=== PATIENT | male | born 1975 | race Hispanic/Latino ===

== ENCOUNTER 2018-03-30 12:25 | Emergency (ER) | payer SELFPAY ==
--- NOTE | 2018-03-30 14:07 | EDPHYS ---
Physician Documentation [facility] Name: Usman Fox Age: 42 yrs Sex: Male : 1975 Arrival Date: 03/30/2018 Time: 12:28 Bed 12 Private MD: Shaka Fitch S ED Physician Joe Sanz HPI: 03/30 13:12 This 42 yrs old Male presents to ER via Ambulatory with complaints of Eye kb Problem. 13:12 The patient is experiencing matting or discharge, redness, itching, The patient kb sustained None. to both eyes, caused by an unknown mechanism. Onset: The symptoms/episode began/occurred yesterday. Duration: the symptoms are continuous. Aggravated by nothing. Alleviated by nothing. Associated signs and symptoms: Pertinent positives: None. Patient does not utilize any form of vision correction. Severity of symptoms: At their worst the symptoms were mild moderate in the emergency department the symptoms are unchanged. The patient has not experienced similar symptoms in the past. The patient has not recently seen a physician. Historical: - Allergies: 12:57 No Known Drug Allergies; lk1 - PMHx: 12:57 ADD/ADHD; Depression; Hypertension; lk1 - PSHx: 12:57 eye surgery; lk1 - Immunization history:: Adult Immunizations up to date. - Social history:: Smoking status: Patient/guardian denies using tobacco. ROS: 13:11 Constitutional: Negative for fever, chills, and weight loss, ENT: Negative for injury, kb pain, and discharge, Cardiovascular: Negative for chest pain, palpitations, and edema, Respiratory: Negative for shortness of breath, cough, wheezing, and pleuritic chest pain, Abdomen/GI: Negative for abdominal pain, nausea, vomiting, diarrhea, and constipation, MS/Extremity: Negative for injury and deformity, Skin: Negative for injury, rash, and discoloration, Neuro: Negative for headache, weakness, numbness, tingling, and seizure. 13:11 Eyes: Positive for itching, matting, redness, Negative for blurry vision, photophobia, vision loss, visual disturbance. Exam: 13:11 Constitutional: This is a well developed, well nourished patient who is awake, alert, kb and in no acute distress. Head/Face: Normocephalic, atraumatic. Chest/axilla: Normal chest wall appearance and motion. Nontender with no deformity. No lesions are appreciated. Cardiovascular: Regular rate and rhythm with a normal S1 and S2. No gallops, murmurs, or rubs. Normal PMI, no JVD. No pulse deficits. Respiratory: Lungs have equal breath sounds bilaterally, clear to auscultation and percussion. No rales, rhonchi or wheezes noted. No increased work of breathing, no retractions or nasal flaring. Abdomen/GI: Soft, non-tender, with normal bowel sounds. No distension or tympany. No guarding or rebound. No evidence of tenderness throughout. Skin: Warm, dry with normal turgor. Normal color with no rashes, no lesions, and no evidence of cellulitis. MS/ Extremity: Pulses equal, no cyanosis. Neurovascular intact. Full, normal range of motion. Neuro: Awake and alert, GCS 15, oriented to person, place, time, and situation. Cranial nerves II-XII grossly intact. Motor strength 5/5 in all extremities. Sensory grossly intact. Cerebellar exam normal. Normal gait. 13:11 Eyes: Conjunctiva: injected, bilaterally. Vital Signs: 12:58 BP 129 / 92; Pulse 90; Resp 15; Temp 97.4(TE); Pulse Ox 95% on R/A; Weight 124.74 kg lk1 (R); Height 5 ft. 10 in. (177.80 cm) (R); Pain 4/10; 12:58 Body Mass Index 39.46 (124.74 kg, 177.80 cm) lk1 Visual Acuity: 14:04 Left Eye Visual acuity 20/20, ; Right Eye Visual acuity 20/40, ; Without Lenses; iw MDM: 13:02 Patient medically screened. kb 13:10 Data reviewed: vital signs, nurses notes. Data interpreted: Pulse oximetry: on room air kb is 95 %. Interpretation: normal. Counseling: I had a detailed discussion with the patient and/or guardian regarding: the historical points, exam findings, and any diagnostic results supporting the discharge/admit diagnosis, the need for outpatient follow up, an opthalmologist, to return to the emergency department if symptoms worsen or persist or if there are any questions or concerns that arise at home. 03/30 13:04 Order name: Visual Acuity; Complete Time: 14:04 kb Administered Medications: No medications were administered Disposition: 14:33 Co-signature as Attending Physician, Joe Sanz MD. rn Disposition: 03/30/18 14:07 Discharged to Home. Impression: Conjunctivitis. - Condition is Stable. - Discharge Instructions: Conjunctivitis (Viral and Bacterial). - Prescriptions for Vigamox 0.5 % Ophthalmic Drops - instill 1 drop by OPHTHALMIC route every 8 hours for 7 days; 5 milliliter. - Medication Reconciliation Form, Thank You Letter, Antibiotic Education, Prescription Opioid Use, Work release form form. - Follow up: Emergency Department; When: As needed; Reason: Worsening of condition. Follow up: Private Physician; When: 2 - 3 days; Reason: Recheck today's complaints, Continuance of care, Re-evaluation by your physician. Signatures: Yanira Lucas, STREET AND BUILDING DECORATOR-C STREET AND BUILDING DECORATOR-Ckb Zaina Ernandez, Joe Woodson RN, MD MD rn Kluge, Leah, RN RN lk1 Corrections: (The following items were deleted from the chart) 14:23 14:07 03/30/2018 14:07 Discharged to Home. Impression: Conjunctivitis. Condition is iw Stable. Discharge Instructions: Conjunctivitis (Viral and Bacterial). Prescriptions for Vigamox 0.5 % Ophthalmic Drops - instill 1 drop by OPHTHALMIC route every 8 hours for 7 days; 5 milliliter. and Forms are Medication Reconciliation Form, Thank You Letter, Antibiotic Education, Prescription Opioid Use. Follow up: Emergency Department; When: As needed; Reason: Worsening of condition. Follow up: Private Physician; When: 2 - 3 days; Reason: Recheck today's complaints, Continuance of care, Re-evaluation by your physician. kb
--- NOTE | 2018-03-30 14:07 | ER ---
Nurse's Notes [facility] Name: Usman Fox Age: 42 yrs Sex: Male : 1975 Arrival Date: 03/30/2018 Time: 12:28 Bed 12 Private MD: Shaka Fitch S Diagnosis: Conjunctivitis Presentation: 03/30 12:55 Presenting complaint: Patient states: "My girlfriend got sick with the flu or a cold. I lk1 got sick yesterday. My eyes were swollen shut this morning. I think I have pink eye or something.". Transition of care: patient was not received from another setting of care. Onset of symptoms was March 30, 2018 at 08:00. Risk Assessment: Do you want to hurt yourself or someone else? Patient reports no desire to harm self or others. Initial Sepsis Screen: Does the patient meet any 2 criteria? No. Patient's initial sepsis screen is negative. Does the patient have a suspected source of infection? No. Patient's initial sepsis screen is negative. Care prior to arrival: None. 12:55 Method Of Arrival: Ambulatory lk1 12:55 Acuity: KALIE 4 lk1 Triage Assessment: 12:57 General: Appears in no apparent distress. Behavior is calm, cooperative, appropriate lk1 for age. Pain: Complains of pain in headache Pain currently is 4 out of 10 on a pain scale. EENT: Eyes with exudate noted from inner aspect of conjuctiva of right eye and inner aspect of conjunctiva of left eye. Historical: - Allergies: 12:57 No Known Drug Allergies; lk1 - PMHx: 12:57 ADD/ADHD; Depression; Hypertension; lk1 - PSHx: 12:57 eye surgery; lk1 - Immunization history:: Adult Immunizations up to date. - Social history:: Smoking status: Patient/guardian denies using tobacco. Screenin:20 Abuse screen: Denies threats or abuse. Denies injuries from another. Nutritional iw screening: No deficits noted. Tuberculosis screening: No symptoms or risk factors identified. Fall Risk None identified. Assessment: 14:04 General: Appears in no apparent distress. Behavior is calm, cooperative. iw 14:04 Neuro: Level of Consciousness is awake, alert, obeys commands. Cardiovascular: iw Patient's skin is warm and dry. Respiratory: Respiratory effort is even, unlabored, Respiratory pattern is regular, symmetrical. EENT: Eyes are tearing on right inner canthus and inner aspect of conjunctiva of left eye Sclera/Cornea are reddened in outer aspect of conjuctiva of right eye, iris of right eye, inner aspect of conjuctiva of right eye, outer aspect of conjuctiva of left eye, iris of left eye and inner aspect of conjunctiva of left eye. Derm: Skin is pink, warm \\T\\ dry. normal. Musculoskeletal: Range of motion: intact in all extremities. Vital Signs: 12:58 BP 129 / 92; Pulse 90; Resp 15; Temp 97.4(TE); Pulse Ox 95% on R/A; Weight 124.74 kg lk1 (R); Height 5 ft. 10 in. (177.80 cm) (R); Pain 4/10; 12:58 Body Mass Index 39.46 (124.74 kg, 177.80 cm) lk1 Visual Acuity: 14:04 Left Eye Visual acuity 20/20, ; Right Eye Visual acuity 20/40, ; Without Lenses; iw ED Course: 12:28 Patient arrived in ED. rg4 12:28 Shaka Fitch MD is Private Physician. rg4 12:56 Triage completed. lk1 13:00 Arm band placed on right wrist. lk1 13:01 Yanira Lucas FNP-C is [facility]. kb 13:01 Joe Sanz MD is Attending Physician. kb 14:03 Zaina Ernandez, RN is Primary Nurse. iw 14:10 Patient has correct armband on for positive identification. iw 14:22 No provider procedures requiring assistance completed. Patient did not have IV access iw during this emergency room visit. Administered Medications: No medications were administered Outcome: 14:07 Discharge ordered by . kb 14:22 Discharged to home ambulatory. iw 14:22 Condition: good 14:22 Discharge instructions given to patient, Instructed on discharge instructions, follow up and referral plans. medication usage, Demonstrated understanding of instructions, follow-up care, medications, Prescriptions given X 1. 14:23 Patient left the ED. iw Signatures: Yanira Lucas FNP-C FNP-Zaina Davidson RN RN iw Kelsey Valverde RN RN lk1 Yecenia Lomeli rg4 Corrections: (The following items were deleted from the chart) 03/31 07:06 03/30 14:04 General: Appears in no apparent distress. Behavior is calm, cooperative, iw iw
[2018-03-30 14:29] VITALS: BP 129/92; TEMP 97.4; O2SAT 95
== END 2018-03-30 14:23 | disposition home or self-care (01) ==
LOC: ER 12:25
DX: H10.9 Unspecified conjunctivitis (principal); I10 Essential (primary) hypertension
CPT/HCPCS: 99282

== ENCOUNTER 2018-10-05 01:28 | Emergency (ER) | payer SELFPAY ==
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
[2018-10-05 02:40] VITALS: BP 143/90; TEMP 97.6; O2SAT 100
== END 2018-10-05 02:32 | disposition left against medical advice (07) ==
LOC: ER 01:28
DX: S09.90XA Unspecified injury of head, initial encounter (principal); W22.8XXA Striking against or struck by other objects, initial encounter; Z53.29 Procedure and treatment not carried out because of patient's decision for other reasons
CPT/HCPCS: 99284

== ENCOUNTER 2019-03-08 23:26 | Emergency (ER) | payer SELFPAY ==
--- OUTSIDE RECORDS SUMMARY | 2019-03-08 23:28 | XMS REPORT ---
:1975 [facility] Address [address] [place] [address] Dr. Santos [address] [place] [id number] Care Team Providers Name Role Phone Unavailable Unavailable Unavailable Problems This patient has no known problems. Allergies, Adverse Reactions, Alerts This patient has no known allergies or adverse reactions. Medications This patient has no known medications.
--- NOTE | 2019-03-08 23:48 | ER ---
Nurse's Notes [facility] Name: Usman Fox Age: 43 yrs Sex: Male : 1975 Arrival Date: 03/08/2019 Time: 23:32 Bed 15 Private MD: Diagnosis: Acute maxillary sinusitis Presentation: 03/08 23:33 Presenting complaint: Patient states: Cough, congestion x 2 weeks with no relief; pain lp1 to throat when swallowing, unsure if fever at home. Transition of care: patient was not received from another setting of care. Onset of symptoms was March 08, 2019. Risk Assessment: Do you want to hurt yourself or someone else? Patient reports no desire to harm self or others. Initial Sepsis Screen: Does the patient meet any 2 criteria? No. Patient's initial sepsis screen is negative. Does the patient have a suspected source of infection? No. Patient's initial sepsis screen is negative. Care prior to arrival: None. 23:33 Method Of Arrival: Ambulatory lp1 23:33 Acuity: KALIE 4 lp1 Historical: - Allergies: 23:34 No Known Allergies; lp1 - Home Meds: 23:34 Prozac Oral [Active]; Adderall XR Oral [Active]; lisinopril Oral [Active]; lp1 - PMHx: 23:34 ADD/ADHD; Depression; Hypertension; lp1 - PSHx: 23:34 None; lp1 - Immunization history:: Adult Immunizations up to date. - Social history:: Smoking status: Patient/guardian denies using tobacco. - Ebola Screening: : No symptoms or risks identified at this time. Screenin:35 Abuse screen: Denies threats or abuse. Denies injuries from another. Nutritional lp1 screening: No deficits noted. Tuberculosis screening: No symptoms or risk factors identified. 23:43 Fall Risk None identified. jb4 Assessment: 23:43 General: Appears in no apparent distress. uncomfortable, Behavior is calm, cooperative, jb4 appropriate for age. Pain: Complains of pain in left zygomatic area, left cheek and left mandible Pain does not radiate. Pain currently is 7 out of 10 on a pain scale. Quality of pain is described as aching. Neuro: Level of Consciousness is awake, alert, obeys commands, Oriented to person, place, time, situation. Cardiovascular: Patient's skin is warm and dry. Respiratory: Reports cough that is non-productive, Airway is patent Respiratory effort is even, unlabored, Respiratory pattern is regular, symmetrical, Breath sounds are clear bilaterally. GI: No signs and/or symptoms were reported involving the gastrointestinal system. : No signs and/or symptoms were reported regarding the genitourinary system. EENT: Throat is reddened has enlarged tonsils bilaterally. Derm: Skin is intact, Skin is pink, warm \T\ dry. Musculoskeletal: Circulation, motion, and sensation intact. 23:54 Reassessment: PT left ED ambulatory with steady gate. No IV in place this visit. jb4 Verbalized understanding of D/c instructions and follow up. Vital Signs: 23:34 BP 127 / 96; Pulse 94; Resp 18; Temp 98.7(O); Pulse Ox 97% on R/A; Weight 127.01 kg; lp1 Height 5 ft. 7 in. (170.18 cm); Pain 7/10; 23:34 Body Mass Index 43.85 (127.01 kg, 170.18 cm) lp1 ED Course: 23:32 Patient arrived in ED. es 23:33 Triage completed. lp1 23:35 Arm band placed on left wrist. lp1 23:36 [facility]rosio [facility] 23:36 Ronald Bustos MD is Attending Physician. [facility] 23:37 Fazal Hernandez, RN is Primary Nurse. jb4 23:43 Patient has correct armband on for positive identification. Bed in low position. Call jb4 light in reach. Side rails up X 1. Pulse ox on. NIBP on. 23:54 No provider procedures requiring assistance completed. Patient did not have IV access jb4 during this emergency room visit. Administered Medications: No medications were administered Outcome: 23:48 Discharge ordered by . [facility] 23:54 Discharged to home ambulatory. jb4 23:54 Condition: stable 23:54 Discharge instructions given to patient, Instructed on discharge instructions, follow up and referral plans. medication usage, Demonstrated understanding of instructions, follow-up care, medications. 23:58 Patient left the ED. jb4 Signatures: Miles Ambrosio PA PA [facility] Jo Ann Mckeon Laura, RN RN lp1 Fazal Hernandez, RN RN jb4 Corrections: (The following items were deleted from the chart) 23:45 23:43 EENT: No signs and/or symptoms were reported regarding the EENT system. jb4 jb4
--- NOTE | 2019-03-08 23:48 | EDPHYS ---
Physician Documentation [facility] Name: Usman Fox Age: 43 yrs Sex: Male : 1975 Arrival Date: 03/08/2019 Time: 23:32 Bed 15 Private MD: ED Physician Ronald Bustos HPI: 03/08 23:47 This 43 yrs old Male presents to ER via Ambulatory with complaints of Cough, jmm Chest Congestion. 23:47 The patient or guardian reports cough. Onset: The symptoms/episode began/occurred jmm gradually, 2 week(s) ago. Associated signs and symptoms: Pertinent positives: fever, sore throat. This is a 43 year old male with no chronic medical conditions that presents to the ED with complaints of sore throat, cough, and left sided facial pain beginning approx 2 weeks ago with fever and chills. . Historical: - Allergies: 23:34 No Known Allergies; lp1 - Home Meds: 23:34 Prozac Oral [Active]; Adderall XR Oral [Active]; lisinopril Oral [Active]; lp1 - PMHx: 23:34 ADD/ADHD; Depression; Hypertension; lp1 - PSHx: 23:34 None; lp1 - Immunization history:: Adult Immunizations up to date. - Social history:: Smoking status: Patient/guardian denies using tobacco. - Ebola Screening: : No symptoms or risks identified at this time. ROS: 23:47 Constitutional: Negative for fever, chills, and weight loss. jmm 23:47 ENT: Positive for sinus congestion, sinus pain, sore throat. 23:47 Respiratory: Positive for cough. 23:47 All other systems are negative. Exam: 23:47 Constitutional: This is a well developed, well nourished patient who is awake, alert, jmm and in no acute distress. 23:47 Chest/axilla: Normal chest wall appearance and motion. 23:47 Abdomen/GI: Non distended, soft Back: Normal ROM Skin: General appearance color normal MS/ Extremity: Moves all extremities, no obvious deformities appreciated, no edema noted to the lower extremities Neuro: Awake and alert, normal gait Psych: Behavior is normal, Mood is normal, Patient is cooperative and pleasant 23:47 Head/face: Sinus tenderness, that is moderate, is located over the left maxillary sinus. 23:47 ENT: TM's: are normal, Posterior pharynx: erythema, that is mild. 23:47 Cardiovascular: Rate: normal, Rhythm: regular. 23:47 Respiratory: the patient does not display signs of respiratory distress, Respirations: normal, Breath sounds: are clear throughout. Vital Signs: 23:34 BP 127 / 96; Pulse 94; Resp 18; Temp 98.7(O); Pulse Ox 97% on R/A; Weight 127.01 kg; lp1 Height 5 ft. 7 in. (170.18 cm); Pain 7/10; 23:34 Body Mass Index 43.85 (127.01 kg, 170.18 cm) lp1 MDM: 23:47 Patient medically screened. [facility] 23:47 ED course: Patient is alert and non toxic in appearance in the ED. Patient shows no [facility] signs of resp distress. PE findings consistent with sinusitis. Patient advised to closely follow up with pcp and otherwise given strict return precautions. patient understood and agrees with the plan of care. . 23:48 Data reviewed: vital signs, nurses notes. Counseling: I had a detailed discussion with berkley the patient and/or guardian regarding: the historical points, exam findings, and any diagnostic results supporting the discharge/admit diagnosis, the need for outpatient follow up, to return to the emergency department if symptoms worsen or persist or if there are any questions or concerns that arise at home. Administered Medications: No medications were administered Disposition: 03/08/19 23:48 Discharged to Home. Impression: Acute maxillary sinusitis. - Condition is Stable. - Discharge Instructions: Sinusitis, Adult. - Prescriptions for cefdinir 300 mg Oral capsule - take 1 capsule by ORAL route every 12 hours for 10 days; 20 capsule. - Medication Reconciliation Form, Thank You Letter, Antibiotic Education, Prescription Opioid Use form. - Follow up: Private Physician; When: 2 - 3 days; Reason: Recheck today's complaints, Continuance of care, Re-evaluation by your physician. Addendum: 03/10/2019 07:22 Co-signature as Attending Physician, Ronald Bustos MD I agree with the assessment and t w4 plan of care. Signatures: Miles Ambrosio PA PA jmm Pena, Laura, RN RN lp1 Fazal Hernandez RN RN jb4 Ronald Bustos MD MD tw4 Corrections: (The following items were deleted from the chart) 03/08 23:58 23:48 03/08/2019 23:48 Discharged to Home. Impression: Acute maxillary sinusitis. jb4 Condition is Stable. Forms are Medication Reconciliation Form, Thank You Letter, Antibiotic Education, Prescription Opioid Use. Follow up: Private Physician; When: 2 - 3 days; Reason: Recheck today's complaints, Continuance of care, Re-evaluation by your physician. berkley
[2019-03-09 00:22] VITALS: BP 127/96; TEMP 98.7; O2SAT 97
== END 2019-03-08 23:58 | disposition home or self-care (01) ==
LOC: ER 23:26
DX: J01.00 Acute maxillary sinusitis, unspecified (principal); I10 Essential (primary) hypertension; F32.9 Major depressive disorder, single episode, unspecified; F90.9 Attention-deficit hyperactivity disorder, unspecified type

== ENCOUNTER 2021-09-02 22:06 | Emergency (ER) | payer SELFPAY ==
[2021-09-02 23:18] LABS: Urine Blood 2+ (Negative); Urine Glucose Negative (Negative); Urine Protein Trace (Negative); Urine Specific Gravity 1.025 (1.005-1.030)
[2021-09-02 23:43] LABS: Urine Bacteria <20 /HPF (NONE SEEN)
[2021-09-03] MEDS ORDERED: AZITHROMYCIN 250 MG TAB ONE (00:27)
[2021-09-03] MEDS ORDERED: CEFTRIAXONE 250 MG/VIAL ONE (00:28)
[2021-09-03 00:30] LABS: Absolute Lymphocytes (CBC) 1.7 K/uL (0.7-4.9); Basophils % 0.9 % (0-1.3); Hematocrit 46.2 % (39.6-49.0); Lymphocytes % 16.9 % (15.3-44.8)
[2021-09-03] MEDS ORDERED: LIDOCAINE 1% MPF 5 ML VIAL ONE (00:30)
--- NOTE | 2021-09-03 00:49 | EDPHYS ---
Physician Documentation [facility] Name: Usman Fox Age: 45 yrs Sex: Male : 1975 Arrival Date: 09/02/2021 Time: 22:10 Bed 23 Private MD: MICHEAL Physician Gaurav Gonsales HPI: 09/03 00:41 This 45 yrs old Male presents to ER via Ambulatory with complaints of Penile jmm Problem, Arm swelling. 00:41 Onset: The symptoms/episode began/occurred gradually, 1 week(s) ago. Modifying factors: jmm The symptoms are alleviated by nothing, the symptoms are aggravated by nothing. Associated signs and symptoms: Pertinent negatives: fever. Is a 45-year-old male with history of depression and hypertension the presents emerged part with complaints of dysuria penile pain and inability to retract his foreskin completely. Patient is able to urinate but states that has a burning sensation. Patient admits to having recent unprotected intercourse. Also complains of burning sensation to the left arm. Denies fever or chills. Denies chest pain. Historical: - Allergies: 09/02 22:31 No Known Allergies; em - PMHx: 22:31 ADD/ADHD; Depression; Hypertension; em - PSHx: 22:31 eye surgery; em - Immunization history:: Client reports having NOT received the Covid vaccine. - Social history:: Smoking status: Patient denies any tobacco usage or history of. ROS: 09/03 00:41 Constitutional: Negative for fever, chills, and weight loss, Cardiovascular: Negative jmm for chest pain, palpitations, and edema, Respiratory: Negative for shortness of breath, cough, wheezing, and pleuritic chest pain. : Positive for urinary symptoms. All other systems are negative. Exam: 00:41 Constitutional: This is a well developed, well nourished patient who is awake, alert, jmm and in no acute distress. Head/Face: atraumatic. Eyes: EOMI, no conjunctival erythema appreciated ENT: Moist Mucus Membranes Neck: Trachea midline, Supple Chest/axilla: Normal chest wall appearance and motion. Cardiovascular: Regular rate and rhythm. No edema appreciated Respiratory: Normal respirations, no respiratory distress appreciated Abdomen/GI: Non distended, soft Back: Normal ROM 00:41 : Male external genitalia: penile discharge, that is yellow, Glans penis is erythematous, there is drainage appreciated. 00:41 Skin: Mild erythema noted to the left humeral region. Vital Signs: 09/02 22:25 BP 132 / 83; Pulse 111; Resp 20; Temp 97.6; Pulse Ox 98% on R/A; Weight 140.61 kg; em Height 5 ft. 9 in. (175.26 cm); Pain 0/10; 22:45 BP 157 / 111; Pulse 103; Resp 20; Temp 98.0; Pulse Ox 100% ; cc4 23:34 BP 112 / 76; Pulse 101; Resp 20; Pulse Ox 98% on R/A; cc4 09/03 01:20 BP 151 / 87; Pulse 92; Resp 20; Temp 98.5; Pulse Ox 98% on R/A; cc4 09/02 22:25 Body Mass Index 45.78 (140.61 kg, 175.26 cm) em MDM: 09/02 22:42 Patient medically screened. [facility] 09/03 00:48 Data reviewed: vital signs, nurses notes. Counseling: I had a detailed discussion with [facility] the patient and/or guardian regarding: the historical points, exam findings, and any diagnostic results supporting the discharge/admit diagnosis, lab results, to return to the emergency department if symptoms worsen or persist or if there are any questions or concerns that arise at home. 09/02 22:42 Order name: CBC with Diff; Complete Time: 00:38 [facility] 09/02 22:42 Order name: BMP; Complete Time: 00:38 [facility] 09/02 22:43 Order name: Urine Microscopic Only; Complete Time: 23:47 [facility] 09/02 23:18 Order name: GC (Allen/Chl) Probe URINE; Complete Time: 15:40 [facility] 09/02 23:18 Order name: Urine Dipstick-Ancillary; Complete Time: 23:21 [facility] 09/02 22:42 Order name: Saline Lock; Complete Time: 23:13 [facility] 09/02 22:43 Order name: Urine Dipstick-Ancillary (obtain specimen); Complete Time: 23:26 [facility] 09/02 23:38 Order name: Labs - recollect needed; Complete Time: 01:33 lp1 09/02 23:44 Order name: Urine Culture EDMS Administered Medications: 00:05 Drug: Rocephin (cefTRIAXone) 250 mg Route: IM; Site: right gluteus; cc4 01:20 Follow up: Response: No adverse reaction cc4 00:05 Drug: AZITHromycin 1 grams Route: PO; cc4 01:20 Follow up: Response: No adverse reaction cc4 01:13 Drug: Flagyl (metroNIDAZOLE) 2 grams Route: PO; cc4 01:20 Follow up: Response: No adverse reaction cc4 Disposition: 05:42 Co-signature as Attending Physician, aGurav Gonsales MD. 7 Disposition Summary: 09/03/21 00:49 Discharge Ordered Location: Home [facility] Condition: Stable jmm Diagnosis - Dysuria jmm - Phimosis jmm Followup: jm - With: Iban Vaughan MD - When: 2 - 3 days - Reason: Recheck today's complaints, Continuance of care, Re-evaluation by your physician Discharge Instructions: - Discharge Summary Sheet jmm - Chlamydia, Male jmm - Dysuria jmm - Gonorrhea jmm - Phimosis, Pediatric jm Forms: - Medication Reconciliation Form [facility] - Thank You Letter jmm - Antibiotic Education jmm - Prescription Opioid Use [facility] Prescriptions: - Doxycycline Hyclate 100 mg Oral Tablet - take 1 tablet by ORAL route every 12 hours for 14 days; 24 tablet; Refills: 0, [facility] Product Selection Permitted Signatures: Dispatcher [employer] EDMS Miles Ambrosio PA PA jmm Jass Patiño, RN RN em Jennifer Ralph RN RN 1 Gaurav Gonsales MD MD 7 Maddi Farfan RN RN cc4 Corrections: (The following items were deleted from the chart) 09/02 23:18 22:43 GC (Gonorr/Clamydia) Probe+R.LAB.BRZ ordered. EDMS EDMS
--- NOTE | 2021-09-03 00:49 | ER ---
Nurse's Notes [facility] Name: Usman Fox Age: 45 yrs Sex: Male : 1975 Arrival Date: 09/02/2021 Time: 22:10 Bed 23 Private MD: Diagnosis: Dysuria;Phimosis Presentation: 09/02 22:25 Chief complaint: Patient states: mee. lower limb swelling for about 2 weeks, about 1.5 em weeks noticed penile swelling, also reports left arm swelling and numbness and tingling that comes and goes in the left arm, reports having some problems urinating due to it swelling shut. Coronavirus screen: Vaccine status: Patient reports being unvaccinated. Ebola Screen: Patient negative for fever greater than or equal to 101.5 degrees Fahrenheit, and additional compatible Ebola Virus Disease symptoms Patient denies exposure to infectious person. Patient denies travel to an Ebola-affected area in the 21 days before illness onset. No symptoms or risks identified at this time. Initial Sepsis Screen: Does the patient meet any 2 criteria? HR > 90 bpm. Does the patient have a suspected source of infection? No. Patient's initial sepsis screen is negative. Risk Assessment: Do you want to hurt yourself or someone else? Patient reports no desire to harm self or others. Onset of symptoms was September 02, 2021. 22:25 Method Of Arrival: Ambulatory em 22:25 Acuity: KALIE 3 em Historical: - Allergies: 22:31 No Known Allergies; em - PMHx: 22:31 ADD/ADHD; Depression; Hypertension; em - PSHx: 22:31 eye surgery; em - Immunization history:: Client reports having NOT received the Covid vaccine. - Social history:: Smoking status: Patient denies any tobacco usage or history of. Screenin:45 Abuse screen: Denies threats or abuse. Nutritional screening: No deficits noted. cc4 Tuberculosis screening: No symptoms or risk factors identified. Fall Risk None identified. Assessment: 22:45 General: Appears uncomfortable, Behavior is cooperative, anxious. Pain: Denies pain. cc4 Neuro: No deficits noted. Level of Consciousness is awake, alert, obeys commands, Oriented to person, place, time, situation. Cardiovascular: No deficits noted. Denies chest pain. Respiratory: No deficits noted. Airway is patent Breath sounds are clear bilaterally. Denies shortness of breath at rest, on exertion. GI: No deficits noted. No signs and/or symptoms were reported involving the gastrointestinal system. Abdomen is obese, Bowel sounds present X 4 quads. : Reports burning with urination, discharge, from penis that is watery. EENT: No deficits noted. No signs and/or symptoms were reported regarding the EENT system. Eyes Clear. Nares are clear Derm: No deficits noted. No signs and/or symptoms reported regarding the dermatologic system. Skin is intact. Musculoskeletal: No deficits noted. No signs and/or symptoms reported regarding the musculoskeletal system. Capillary refill < 3 seconds, Range of motion: intact in all extremities. 22:50 Reassessment: # 20 g saline lock started right wrist with blood drawn \T\ sent to lab; cc4 ambulatory to BR \T\ voided with urine specimen collected \T\ sent to lab, arabella. well. 23:34 Reassessment: Patient appears in no apparent distress at this time. BP decreasing to cc4 112/76. Vital Signs: 22:25 BP 132 / 83; Pulse 111; Resp 20; Temp 97.6; Pulse Ox 98% on R/A; Weight 140.61 kg; em Height 5 ft. 9 in. (175.26 cm); Pain 0/10; 22:45 BP 157 / 111; Pulse 103; Resp 20; Temp 98.0; Pulse Ox 100% ; cc4 23:34 BP 112 / 76; Pulse 101; Resp 20; Pulse Ox 98% on R/A; cc4 09/03 01:20 BP 151 / 87; Pulse 92; Resp 20; Temp 98.5; Pulse Ox 98% on R/A; cc4 09/02 22:25 Body Mass Index 45.78 (140.61 kg, 175.26 cm) em ED Course: 09/02 22:10 Patient arrived in ED. cf2 22:26 Miles Ambrosio PA is PHCP. [facility] 22:26 Gaurav Gonsales MD is Attending Physician. [facility] 22:31 Triage completed. em 22:31 Arm band placed on. em 22:33 Maddi Farfan, VANESSA is Primary Nurse. cc4 22:45 Patient has correct armband on for positive identification. Bed in low position. Call cc4 light in reach. Side rails up X 1. 23:13 Urine Microscopic Only Sent. cc4 09/03 00:48 Iban Vaughan MD is Referral Physician. [facility] 01:13 Urine Culture Sent. cc4 01:20 No provider procedures requiring assistance completed. cc4 01:20 IV discontinued, intact, bleeding controlled, No redness/swelling at site. Pressure cc4 dressing applied. Administered Medications: 00:05 Drug: Rocephin (cefTRIAXone) 250 mg Route: IM; Site: right gluteus; cc4 01:20 Follow up: Response: No adverse reaction cc4 00:05 Drug: AZITHromycin 1 grams Route: PO; cc4 01:20 Follow up: Response: No adverse reaction cc4 01:13 Drug: Flagyl (metroNIDAZOLE) 2 grams Route: PO; cc4 01:20 Follow up: Response: No adverse reaction cc4 Outcome: 00:49 Discharge ordered by MD. jm 01:20 Discharged to home ambulatory. cc4 01:20 Condition: stable 01:20 Discharge instructions given to patient, Instructed on discharge instructions, follow up and referral plans. medication usage, Demonstrated understanding of instructions, follow-up care, medications. 01:32 Patient left the ED. cc4 Signatures: Miles Ambrosio PA PA jmm Munoz, Edgar, RN RN Woo Foster cf2 Maddi Farfan, RN RN cc4 Corrections: (The following items were deleted from the chart) 09/02 23:18 23:13 GC (Gonorr/Clamydia) Probe+R.LAB.BRZ drawn and sent. cc4 EDMS
[2021-09-03] MEDS ORDERED: metroNIDAZOLE 500 MG TABLET ONE (01:38)
[2021-09-03 01:40] VITALS: O2SAT 98
[2021-09-03 01:42] VITALS: BP 151/87; TEMP 98.5
[2021-09-08 10:41] LABS: C.trachomatis RNA,TMA Not Detected (Not Detected)
== END 2021-09-03 01:32 | disposition home or self-care (01) ==
LOC: ER 22:06
DX: R30.0 Dysuria (principal); N47.1 Phimosis
CPT/HCPCS: 36415; 80048; 81003; 81015; 85025; 87086; 87088; 87490; 87590; 96372; 99283; J0696

== ENCOUNTER 2023-08-12 23:43 | Emergency (ER) | payer SELFPAY ==
--- NOTE | 2023-08-13 01:40 | EDPHYS ---
Physician Documentation [facility] Name: Usman Fox Age: 47 yrs Sex: Male : 1975 Arrival Date: 08/12/2023 Time: 23:43 Bed 12 Private MD: ED Physician Joy Maciel HPI: 08/13 01:34 This 47 yrs old Male presents to ER via Ambulatory with complaints of Chest kb Congestion, Cough. 01:34 The patient or guardian reports cough, that is intermittent, described as mild. Onset: kb The symptoms/episode began/occurred 5 day(s) ago. Severity of symptoms: At their worst the symptoms were mild, moderate, in the emergency department the symptoms are unchanged. Modifying factors: The symptoms are alleviated by nothing, the symptoms are aggravated by nothing. Associated signs and symptoms: The patient has no apparent associated signs or symptoms. The patient has not experienced similar symptoms in the past. The patient has been recently seen by a physician:. Pt reports cough and congestion for 5 days. Denies fever. concerned he has pneumonia. States he has had this cough and congestion intermittently for "a while.". Historical: - Allergies: 08/12 23:58 No Known Allergies; pf1 - PMHx: 23:58 ADD/ADHD; Depression; Hypertension; pf1 - PSHx: 23:58 eye surgery; pf1 - Immunization history:: Adult Immunizations up to date, Client reports having NOT received the Covid vaccine. Last tetanus immunization: > 10 years ago Flu vaccine is not up to date. - Social history:: Smoking status: Patient reports use of chewing tobacco. Patient uses alcohol, occasionally. Patient/guardian denies using street drugs. ROS: 08/13 01:34 Constitutional: Negative for fever, chills, and weight loss, kb Respiratory: Positive for cough, Negative for dyspnea on exertion, hemoptysis, orthopnea, pleurisy, shortness of breath, sputum production, wheezing, All other systems are negative, Exam: 01:34 Constitutional: This is a well developed, well nourished patient who is awake, alert, kb and in no acute distress. Head/Face: Normocephalic, atraumatic. ENT: Moist Mucous membranes Cardiovascular: Regular rate Respiratory: Respirations even and unlabored. No increased work of breathing. Talking in full sentences Skin: Warm, dry with normal turgor. Normal color. MS/ Extremity: Pulses equal, no cyanosis. Neurovascular intact. Full, normal range of motion. Neuro: Awake and alert, GCS 15, oriented to person, place, time, and situation. Moves all extremities. Normal gait. Vital Signs: 08/12 23:53 BP 140 / 93; Pulse 99; Resp 18; Temp 99.7; Pulse Ox 99% ; Weight 127.01 kg; Height 5 pf1 ft. 10 in. ; Pain 0/10; 08/13 01:48 BP 133 / 89; Pulse 95; Resp 16; Temp 99; Pulse Ox 100% ; Pain 0/10; pf1 08/12 23:53 Body Mass Index 40.18 (127.01 kg, 177.8 cm) pf1 08/12 23:53 Pain Scale: Adult pf1 08/13 01:48 Pain Scale: Adult pf1 MDM: 08/12 23:50 Patient medically screened. kb 08/13 01:38 Differential Diagnosis: Bronchitis Influenza Upper Respiratory Infection Pneumonia. kb Data reviewed: vital signs, nurses notes. Test considered but Not performed: Labs: covid and flu tests considered, but result would not change plan of care. Counseling: I had a detailed discussion with the patient and/or guardian regarding the historical points, exam findings, and any diagnostic results supporting the discharge/admit diagnosis, radiology results, the need for outpatient follow up, a family practitioner, to return to the emergency department if symptoms worsen or persist or if there are any questions or concerns that arise at home. 08/12 23:56 Order name: Chest Pa And Lat (2 Views) XRAY kb Administered Medications: No medications were administered Disposition Summary: 08/13/23 01:40 Discharge Ordered Notes: Location: Home kb Condition: Stable kb Diagnosis - Cough kb Followup: kb - With: Emergency Department - When: As needed - Reason: Worsening of condition Followup: kb - With: Private Physician - When: 2 - 3 days - Reason: Recheck today's complaints, Continuance of care, Re-evaluation by your physician Discharge Instructions: - Discharge Summary Sheet kb - Cough, Adult, [id number] kb Forms: - Medication Reconciliation Form kb - Thank You Letter kb - Antibiotic Education kb - Prescription Opioid Use kb - Patient Portal Instructions kb - Leadership Thank You Letter kb Signatures: Dispatcher [employer] Yanira Savage, TEXTILE MACHINE OPERATOR-C TEXTILE MACHINE OPERATOR-Ckb Fanny Thurman, RN RN pf1
--- NOTE | 2023-08-13 01:40 | ER ---
Nurse's Notes [facility] Name: Usman Fox Age: 47 yrs Sex: Male : 1975 Arrival Date: 08/12/2023 Time: 23:43 Bed 12 Private MD: Diagnosis: Cough Presentation: 08/12 23:53 Chief complaint: Patient states: cough and congestion,onset 5 days. Coronavirus screen: pf1 Vaccine status: Patient reports being unvaccinated. Client denies travel out of the [place] in the last 14 days. Client presents with at least one sign or symptom that may indicate coronavirus-19. Ebola Screen: Patient negative for fever greater than or equal to 101.5 degrees Fahrenheit, and additional compatible Ebola Virus Disease symptoms. Initial Sepsis Screen: Does the patient meet any 2 criteria? HR > 90 bpm. No. Patient's initial sepsis screen is negative. Does the patient have a suspected source of infection? No. Patient's initial sepsis screen is negative. Risk Assessment: Do you want to hurt yourself or someone else? Patient reports no desire to harm self or others. 23:53 Method Of Arrival: Ambulatory pf1 23:53 Acuity: KALIE 4 pf1 Triage Assessment: 08/13 00:16 General: Appears in no apparent distress. comfortable, Behavior is calm, cooperative. cm10 Pain: Denies pain. EENT: No deficits noted. No signs and/or symptoms were reported regarding the EENT system. Neuro: No deficits noted. Level of Consciousness is awake, alert, obeys commands, Oriented to person, place, time, situation. Cardiovascular: No deficits noted. Respiratory: No deficits noted. Reports cough that is non-productive, dry, Airway is patent Respiratory effort is even, unlabored, Respiratory pattern is regular, symmetrical. GI: No deficits noted. No signs and/or symptoms were reported involving the gastrointestinal system. : No deficits noted. Derm: No deficits noted. No signs and/or symptoms reported regarding the dermatologic system. Musculoskeletal: No deficits noted. No signs and/or symptoms reported regarding the musculoskeletal system. Historical: - Allergies: 08/12 23:58 No Known Allergies; pf1 - PMHx: 23:58 ADD/ADHD; Depression; Hypertension; pf1 - PSHx: 23:58 eye surgery; pf1 - Immunization history:: Adult Immunizations up to date, Client reports having NOT received the Covid vaccine. Last tetanus immunization: > 10 years ago Flu vaccine is not up to date. - Social history:: Smoking status: Patient reports use of chewing tobacco. Patient uses alcohol, occasionally. Patient/guardian denies using street drugs. Screenin/04 00:17 [facility] ED Fall Risk Assessment (Adult) History of falling in the last 3 months, cm10 including since admission No falls in past 3 months (0 pts). [facility] ED Fall Risk Assessment (Adult) Confusion or Disorientation No (0 pts) Intoxicated or Sedated No (0 pts) Impaired Gait No (0 pts) Mobility Assist Device Used No (0 pt) Altered Elimination No (0 pt) Score/Fall Risk Level 0 - 2 = Low Risk Oriented to surroundings, Maintained a safe environment, Hourly rounding (assess needs \T\ fall precautionary measures) done. Abuse screen: Denies threats or abuse. Denies injuries from another. Nutritional screening: No deficits noted. Tuberculosis screening: No symptoms or risk factors identified. Assessment: 00:17 Reassessment: See triage assessment. cm10 01:30 Reassessment: Patient appears in no apparent distress at this time. Patient and/or pf1 family updated on plan of care and expected duration. Pain level reassessed. Patient is alert, oriented x 3, equal unlabored respirations, skin warm/dry/pink. Patient states symptoms have improved. Vital Signs: 08/12 23:53 BP 140 / 93; Pulse 99; Resp 18; Temp 99.7; Pulse Ox 99% ; Weight 127.01 kg; Height 5 pf1 ft. 10 in. ; Pain 0/10; 08/13 01:48 BP 133 / 89; Pulse 95; Resp 16; Temp 99; Pulse Ox 100% ; Pain 0/10; pf1 08/12 23:53 Body Mass Index 40.18 (127.01 kg, 177.8 cm) pf1 08/12 23:53 Pain Scale: Adult pf1 08/13 01:48 Pain Scale: Adult pf1 ED Course: 08/12 23:49 Patient arrived in ED. gm2 23:49 [facility]C [facility] kb 23:49 Joy Maciel MD is Attending Physician. kb 23:58 Triage completed. pf1 08/13 00:17 Arm band placed on Patient placed in an exam room, on a stretcher. cm10 00:17 Patient has correct armband on for positive identification. Bed in low position. Call cm10 light in reach. Provided Education on: ER Process and procedures. . 00:49 Chest Pa And Lat (2 Views) XRAY In Process Unspecified. EDMS 01:48 No provider procedures requiring assistance completed. Patient did not have IV access pf1 during this emergency room visit. Administered Medications: No medications were administered Medication: 00:17 VIS not applicable for this client. cm10 Outcome: 01:40 Discharge ordered by . kb 01:48 Discharged to home ambulatory, pf1 01:48 Condition: stable 01:48 Discharge instructions given to patient, Instructed on discharge instructions, follow up and referral plans. Demonstrated understanding of instructions, follow-up care, 01:48 Patient left the ED. pf1 Signatures: Dispatcher [employer] EDCO Yanira Lucas, KRISHNA LASSITER-Fanny Johnson RN RN pf1 Gisell Mei RN RN cm10 Teresa Price gm2 Corrections: (The following items were deleted from the chart) 08/12 23:58 23:53 Acuity: KALIE 3 pf1 pf1
[2023-08-13 01:56] VITALS: BP 133/89; TEMP 99; O2SAT 100
--- NOTE | 2023-08-13 13:42 | RAD REPORT ---
EXAM DESCRIPTION: X-ray two view chest. CLINICAL HISTORY: 47 years Male, Cough;Congestion COMPARISON: None. TECHNIQUE: PA and Lateral views of the chest performed on 08/13/2023 at 12:37 AM FINDINGS: The lungs are hypoinflated and are grossly clear. The costophrenic sulci are clear. There is no evidence of a pneumothorax. The cardiac silhouette is normal in size. The mediastinal contours are normal. No acute osseous abnormalities are identified. There are mild degenerative changes along the thoracic spine. No focal soft tissue abnormalities are identified. IMPRESSION: No evidence of acute intrathoracic disease. The lungs are hypoinflated. Electronically signed by: Stacia Recinos DO 08/13/2023 1:02 AM CDT Due to temporary technical issues with the PACS/Fluency reporting system, reports are being signed by the in house radiologist without review as a courtesy to ensure prompt reporting. The interpreting r adiologist is fully responsible for the content of the report.
== END 2023-08-13 01:48 | disposition home or self-care (01) ==
LOC: ER 23:43
DX: R05.9 Cough, unspecified (principal); F17.220 Nicotine dependence, chewing tobacco, uncomplicated
CPT/HCPCS: 71046; 99283

== ENCOUNTER 2025-08-31 14:30 | Emergency (ER) | payer SELFPAY ==
[2025-08-31] MEDS ORDERED: NA CHLORIDE 0.9% 1,000 ML ONE (14:46)
[2025-08-31] MEDS ORDERED: KETOROLAC 30 MG/ML INJ ONE (14:46)
[2025-08-31] MEDS ORDERED: ONDANSETRON 4 MG/2 ML VIAL ONE (14:46)
[2025-08-31 15:05] LABS: Absolute Lymphocytes (CBC) 1.3 K/uL (0.7-4.9); Hematocrit 48.2 % (39.6-49.0); Hemoglobin 16.4 g/dL (13.6-17.9); MCH 28.8 pg (27.0-35.0); MCHC 34.0 g/dL (32.0-36.0); MCV 84.6 fL (80-100); MPV 6.8 fL (7.6-11.3); Nucleated RBC Absolute Count 0.0 (0-0); Nucleated Red Blood Cells % 0.1 % (0-0); RBC Red Blood Cell Count 5.70 M/uL (4.33-5.43); White Blood Count 12.50 thou/uL (4.3-10.9)
[2025-08-31 15:25] LABS: ALT/SGPT 46.0 U/L (16-61); AST/SGOT 24.0 U/L (15-37); Albumin 3.1 g/dL (3.4-5.0); Alkaline Phosphatase 54.0 U/L (45-117); Anion Gap 9.7 mEq/L (5.0-15.0); BUN Blood Urea Nitrogen 13.0 mg/dL (7-18); Glucose Level 113.0 mg/dL (74-106); Potassium 3.7 mEq/L (3.5-5.1)
[2025-08-31 15:26] LABS: Albumin/Globulin Ratio 0.7 (1.1-1.8); Globulin 4.2 g/dL (2.3-3.5); Lipase 18.0 U/L (13-75)
--- NOTE | 2025-08-31 16:24 | RAD REPORT ---
EXAMINATION: CT ABDOMEN AND PELVIS WITH CONTRAST CLINICAL INDICATION: Abdominal pain TECHNIQUE: CT abdomen and pelvis was performed, after the administration of 100 cc Isovue-300.. Sagit alisha and coronal reconstructions were obtained. One or more of the following dose reduction techniques were used: Automated exposure control, adjustment of the mA and kV according to patient si ze, and iterative reconstruction. Unless otherwise specified, incidental findings do not require dedicated imaging follow-up. [id number]. Oral contrast was not given which limits evaluation of bowel and appendix. COMPARISON: .None FINDINGS: Liver, spleen, pancreas, and kidneys appear unremarkable 1.7 cm right adrenal nodule Hounsfield unit 27.Recommend 1 year follow up adrenal washout CT. If stab le ? 1 year, no further follow-up imaging. 1.2 cm left adrenal nodule. Hounsfield unit 32.. Probable adenoma.Recommend 1 year follow up adrenal washout CT. If stable ? 1 year, no further follow-up imaging. Several diverticula stem from the left colon. Moderate stranding adjacent to the descending colon. Ti ny low-density structure adjacent to the descending colon. Due to its small size it cannot be determined if this represents fat or extraluminal air. Although fat is favored. No abscess. Normal appendix : IMPRESSION: Moderate descending colon diverticulitis
--- NOTE | 2025-08-31 16:34 | ER ---
Nurse's Notes [facility] Name: Usman Fox Age: 49 yrs Sex: Male : 1975 Arrival Date: 08/31/2025 Time: 14:30 Bed 12 Private MD: Diagnosis: Diverticulitis of intestine, part unspecified, without perforation or abscess without bleeding Presentation: 08/31 14:45 Chief complaint: Patient states: LUQ PAIN x3 DAYS. Coronavirus screen: At this time, bp the client does not indicate any symptoms associated with coronavirus-19. Ebola Screen: No symptoms or risks identified at this time. Initial Sepsis Screen: Does the patient meet any 2 criteria? No. Patient's initial sepsis screen is negative. Does the patient have a suspected source of infection? No. Patient's initial sepsis screen is negative. Risk Assessment: Do you want to hurt yourself or someone else? Patient reports no desire to harm self or others. Onset of symptoms is unknown. 14:45 Method Of Arrival: Ambulatory bp 14:45 Acuity: KALIE 3 bp Triage Assessment: 14:45 General: Appears uncomfortable, Behavior is cooperative, appropriate for age, anxious. bp Pain: Complains of pain in left upper quadrant. EENT: No deficits noted. Neuro: No deficits noted. Cardiovascular: No deficits noted. Respiratory: No deficits noted. GI: Reports upper abdominal pain. : No signs and/or symptoms were reported regarding the genitourinary system. Derm: No deficits noted. Musculoskeletal: No deficits noted. Historical: - Allergies: 14:45 No Known Drug Allergies; bp - PMHx: 14:45 ADD/ADHD; Depression; Hypertension; bp - PSHx: 14:45 eye surgery; bp - Immunization history:: Adult Immunizations unknown. - Infectious Disease History:: Denies. - Social history:: Smoking status: unknown. Screenin:00 [facility] ED Fall Risk Assessment (Adult) History of falling in the last 3 months, rg5 including since admission No falls in past 3 months (0 pts) Confusion or Disorientation No (0 pts) Intoxicated or Sedated No (0 pts) Impaired Gait No (0 pts) Mobility Assist Device Used No (0 pt) Altered Elimination No (0 pt) Score/Fall Risk Level 0 - 2 = Low Risk Oriented to surroundings, Maintained a safe environment. 16:55 Abuse screen: Denies threats or abuse. Denies injuries from another. Nutritional rg5 screening: No deficits noted. Tuberculosis screening: No symptoms or risk factors identified. Assessment: 15:00 General: Appears in no apparent distress. uncomfortable, Behavior is calm, cooperative, rg5 appropriate for age. Pain: Complains of pain in abdomen Quality of pain is described as aching. Neuro: Level of Consciousness is awake, alert, Oriented to person, place, time, situation, Appropriate for age. Cardiovascular: Denies chest pain, Patient's skin is warm and dry. Respiratory: Airway is patent Respiratory effort is even, unlabored. GI: Bowel sounds present in left lower quadrant Abd is soft. : No signs and/or symptoms were reported regarding the genitourinary system. EENT: No signs and/or symptoms were reported regarding the EENT system. Derm: Skin is intact, Skin is dry, Skin is normal. Musculoskeletal: Circulation, motion, and sensation intact. Range of motion: intact in all extremities. 16:24 Reassessment: Patient and/or family updated on plan of care and expected duration. Pain rg5 level reassessed. Patient is alert, oriented x 3, equal unlabored respirations, skin warm/dry/pink. Patient states symptoms have improved. Vital Signs: 14:45 BP 139 / 58; Pulse 110; Resp 20; Temp 97; Pulse Ox 98% ; bp 15:00 BP 133 / 85; Pulse 101; Resp 18; Pulse Ox 95% ; rg5 16:24 BP 131 / 87; Pulse 91; Resp 17; Pulse Ox 95% ; rg5 ED Course: 14:33 Patient arrived in ED. im 14:33 Yanira Lucas FNP-C [facility]. kb 14:34 Lokesh Brothers MD is Attending Physician. kb 14:45 Triage completed. bp 14:45 Arm band placed on. bp 14:49 Thompson Garcia RN is Primary Nurse. rg5 14:59 Initial lab(s) drawn, by me, sent to lab. Inserted saline lock: 20 gauge in right bp forearm, using aseptic technique. Blood collected. Flushed with 10 mL NS. 15:00 Patient has correct armband on for positive identification. Bed in low position. Call rg5 light in reach. Side rails up X 1. Door closed. Noise minimized. 15:00 No provider procedures requiring assistance completed. rg5 15:41 CT Abd/Pelvis - IV Contrast Only In Process Unspecified. EDMS 16:55 IV discontinued, bleeding controlled, No redness/swelling at site. Pressure dressing rg5 applied. Administered Medications: 15:00 Drug: TORadol - Ketorolac IVP 15 mg IVP once Route: IVP; Site: right forearm; rg5 16:06 Follow up: Response: No adverse reaction rg5 15:00 Drug: Ondansetron IVP 4 mg IVP once; over 2 minutes Route: IVP; Site: right forearm; rg5 16:06 Follow up: Response: No adverse reaction rg5 15:00 Drug: NS 0.9% IV 1000 ml IV at 1 bolus Per protocol; to be given as a bolus over 60 rg5 minutes Route: IV; Rate: 1 bolus; Site: right forearm; 16:06 Follow up: IV Status: Completed infusion; IV Intake: 1000ml rg5 16:30 Drug: metroNIDAZOLE PO 500 mg PO once Route: PO; rg5 16:54 Follow up: Response: No adverse reaction rg5 16:31 Drug: Ciprofloxacin PO 500 mg PO once Route: PO; rg5 16:55 Follow up: Response: No adverse reaction rg5 Medication: 15:00 VIS not applicable for this client. rg5 Intake: 16:06 IV: 1000ml; Total: 1000ml. rg5 Outcome: 16:34 Discharge ordered by . kb 16:55 Discharged to home ambulatory, rg5 16:55 Condition: stable 16:55 Discharge instructions given to patient, Instructed on discharge instructions, Demonstrated understanding of instructions, Prescriptions given X 2, 16:56 Patient left the ED. rg5 Signatures: Dispatcher [employer] EDMS Yanira Lucas, KRISHNA LASSITER-Dash Yeboah, RN RN Aggie Alston Rommel RN RN rg5
--- NOTE | 2025-08-31 16:34 | EDPHYS ---
Physician Documentation [facility] Name: Usman Fox Age: 49 yrs Sex: Male : 1975 Arrival Date: 08/31/2025 Time: 14:30 Bed 12 Private MD: ED Physician Lokesh Brothers HPI: 08/31 16:19 This 49 yrs old Male presents to ER via Ambulatory with complaints of kb Abdominal Pain. 16:19 Patient is a 49-year-old male who presents for left lateral abdominal pain that started kb 3 days ago. Denies nausea, vomiting, diarrhea, fever, urinary symptoms.. Historical: - Allergies: 14:45 No Known Drug Allergies; bp - PMHx: 14:45 ADD/ADHD; Depression; Hypertension; bp - PSHx: 14:45 eye surgery; bp - Immunization history:: Adult Immunizations unknown. - Infectious Disease History:: Denies. - Social history:: Smoking status: unknown. ROS: 16:18 Constitutional: As per HPI kb Exam: 16:18 Constitutional: This is a well developed, well nourished patient who is awake, alert, kb and in no acute distress. Head/Face: Normocephalic, atraumatic. ENT: Moist Mucous membranes Cardiovascular: Regular rate Respiratory: Respirations even and unlabored. No increased work of breathing. Talking in full sentences Skin: Warm, dry with normal turgor. Normal color. MS/ Extremity: Pulses equal, no cyanosis. Neurovascular intact. Full, normal range of motion. Neuro: Awake and alert, GCS 15, oriented to person, place, time, and situation. 16:18 Abdomen/GI: Inspection: abdomen appears normal, Bowel sounds: normal, Palpation: soft, in all quadrants, moderate abdominal tenderness, in the anterior aspect of left lateral abdomen, Vital Signs: 14:45 BP 139 / 58; Pulse 110; Resp 20; Temp 97; Pulse Ox 98% ; bp 15:00 BP 133 / 85; Pulse 101; Resp 18; Pulse Ox 95% ; rg5 16:24 BP 131 / 87; Pulse 91; Resp 17; Pulse Ox 95% ; rg5 MDM: 14:34 Medical Screening Exam initiated kb 16:33 Differential diagnosis: diverticulitis, non-specific abd pain, pancreatitis, kb Ureterolithiasis, urinary tract infection. Data reviewed: vital signs, nurses notes. Consideration of Admission/Observation Escalation of care including admission/observation considered. Admission considered but patient prefers outpatient treatment. States he has dogs to take care of so he cannot stay in the hospital. Patient educated on strict return precautions, verbal understanding received.. Counseling: I had a detailed discussion with the patient and/or guardian regarding the historical points, exam findings, and any diagnostic results supporting the discharge/admit diagnosis, lab results, radiology results, the need for outpatient follow up, a family practitioner, to return to the emergency department if symptoms worsen or persist or if there are any questions or concerns that arise at home. 08/31 14:50 Order name: CBC with Diff; Complete Time: 15:31 kb 08/31 14:50 Order name: CMP; Complete Time: 15:31 kb 08/31 14:50 Order name: Lipase; Complete Time: 15:31 kb 08/31 14:50 Order name: CT Abd/Pelvis - IV Contrast Only; Complete Time: 16:25 kb 08/31 14:50 Order name: IV Saline Lock; Complete Time: 15:05 kb 08/31 14:50 Order name: Labs collected and sent; Complete Time: 15:05 kb Administered Medications: 15:00 Drug: TORadol - Ketorolac IVP 15 mg IVP once Route: IVP; Site: right forearm; rg5 16:06 Follow up: Response: No adverse reaction rg5 15:00 Drug: Ondansetron IVP 4 mg IVP once; over 2 minutes Route: IVP; Site: right forearm; rg5 16:06 Follow up: Response: No adverse reaction rg5 15:00 Drug: NS 0.9% IV 1000 ml IV at 1 bolus Per protocol; to be given as a bolus over 60 rg5 minutes Route: IV; Rate: 1 bolus; Site: right forearm; 16:06 Follow up: IV Status: Completed infusion; IV Intake: 1000ml rg5 16:30 Drug: metroNIDAZOLE PO 500 mg PO once Route: PO; rg5 16:54 Follow up: Response: No adverse reaction rg5 16:31 Drug: Ciprofloxacin PO 500 mg PO once Route: PO; rg5 16:55 Follow up: Response: No adverse reaction rg5 Disposition Summary: 08/31/25 16:34 Discharge Ordered Notes: Location: Home kb Condition: Stable kb Diagnosis - Diverticulitis of intestine, part unspecified, without perforation or abscess kb without bleeding Followup: kb - With: Emergency Department - When: As needed - Reason: Worsening of condition Followup: kb - With: Private Physician - When: 2 - 3 days - Reason: Recheck today's complaints, Continuance of care, Re-evaluation by your physician Discharge Instructions: - Discharge Summary Sheet kb - Diverticulitis, [id number] kb Forms: - Medication Reconciliation Form kb - Antibiotic Education kb - Prescription Opioid Use kb - Patient Portal Instructions kb - Leadership Thank You Letter kb Prescriptions: - Flagyl 500 mg Oral Tablet - take 1 tablet ORAL route every 8 hours for 10 days; 30 tablet; Refills: 0, kb Product Selection Permitted - Cipro 500 mg Oral tablet - take 1 tablet ORAL route every 12 hours for 10 days; 20 tablet; Refills: 0, kb Product Selection Permitted - Tramadol 50 mg Oral Tablet - take 1 tablet ORAL route every 8 hours as needed; 12 tablet; Refills: 0, kb Product Selection Permitted Signatures: Dispatcher [employer] EDYanira Heck, VP CLINICAL RESEARCH-C SRAVANI-Dash Yeboah, RN RN Thompson Garcia, RN RN rg5 Corrections: (The following items were deleted from the chart) 14:51 14:51 CBC+H.LAB.BRZ ordered. EDMS EDMS 14:51 14:51 COMPREHENSIVE METABOLIC PANEL+C.LAB.BRZ ordered. EDMS EDMS 14:51 14:51 LIPASE+C.LAB.BRZ ordered. EDMS EDMS
[2025-08-31] MEDS ORDERED: CIPROFLOXACIN HCL 500 MG TAB ONE (16:35)
[2025-08-31 19:41] VITALS: TEMP 97
[2025-08-31 19:42] VITALS: O2SAT 95
[2025-08-31 19:43] VITALS: BP 131/87
== END 2025-08-31 16:56 | disposition home or self-care (01) ==
LOC: ER 14:30
DX: K57.92 Diverticulitis of intestine, part unspecified, without perforation or abscess without bleeding (principal); I10 Essential (primary) hypertension; F90.9 Attention-deficit hyperactivity disorder, unspecified type; F32.A Depression, unspecified
CPT/HCPCS: 36415; 74177; 80053; 83690; 85025; 96361; 96374; 96375; 99284; J1885; J2405; J7030; Q9967